=== PATIENT | male | born 1950 | race Caucasian/White ===

== ENCOUNTER 2023-02-06 02:08 | Inpatient (IN) ==
[2023-02-06] MEDS ORDERED: 0.9 % SODIUM CHLORIDE 1,000 ML IV ONE (02:14)
[2023-02-06 02:34] LABS: POC Calcium, Ionized 0.91 (1.16-1.32); POC Creatinine 1.7 (0.6-1.2); POC Potassium 3.4 (3.3-5.1)
[2023-02-06 02:41] LABS: Basophils # (Auto) 0.01 K/mcL (0.00-0.30); Basophils % (Auto) 0.2 % (0.0-2.0); Eosinophils # (Auto) 0.06 K/mcL (0.00-0.70); Eosinophils % (Auto) 1.3 % (0.0-7.0); Hematocrit 40.9 % (40.1-51.0); Hemoglobin 13.3 g/dL (13.7-17.5); Lymphocytes # (Auto) 0.52 K/mcL (1.50-4.80); Lymphocytes % (Auto) 10.9 % (15.5-49.0); Mean Cell Volume 99.5 fL (80.0-100.0); Mean Corpuscular HGB Conc 32.5 g/dL (31.0-36.0); Mean Platelet Volume 10.4 fL (8.8-12.5); Monocytes # (Auto) 0.02 K/mcL (0.10-0.90); Monocytes % (Auto) 0.4 % (1.0-12.0); Neutrophils % (Auto) 87.2 % (38.0-78.0); Platelet Count 120 K/mcL (140-440); RBC 4.11 M/mcL (4.63-6.08); Red Cell Distribution Width 15.7 % (11.5-14.5); WBC 4.8 K/mcL (4.5-11.0)
[2023-02-06 03:01] LABS: ALT/SGPT 16 U/L (<40); AST/SGOT 23 U/L (<40); Albumin 3.6 gm/dL (3.2-5.2); Albumin/Globulin Ratio 0.7 (1.0-2.3); Alkaline Phosphatase 85 U/L (39-117); Bilirubin,Total 0.6 mg/dL (0.1-1.0); Blood Urea Nitrogen 19 mg/dL (8-23); Calcium 9.5 mg/dL (8.6-10.4); Carbon Dioxide 26 mmol/L (22-30); Chloride 101 mmol/L (96-108); Globulin 4.9 gm/dL (2.2-3.7); Glomerular Filtration Rate 42; Glucose 128 mg/dL (70-105)
[2023-02-06 03:27] LABS: Appearance,Urine CLEAR (Clear); Bilirubin,Urine Negative (Negative); Color,Urine YELLOW; Culture Indicated,Urine No; Glucose,Urine (UA) Negative (Negative); Ketones,Urine Negative (Negative); Leukocyte Esterase,Urine Negative /uL (Negative); Mucus,Urine FEW /hpf; Nitrate,Urine Negative (Negative); Protein,Urine Negative (Negative); Specific Gravity,Urine 1.014 (1.000-1.035); Urine Blood 0.03 mg/dL (Negative); Urine RBC 22 /hpf (0-3); Urine Squamous Epithelial Cell < 1 /hpf (0-4); Urine WBC 1 /hpf (0-4); Urobilinogen,Urine Negative
[2023-02-06] MEDS ORDERED: AZITHROMYCIN 500 MG in DEXTROSE 5% IN WATER 250 ML IV ONE (03:32)
[2023-02-06] MEDS ORDERED: cefTRIAXone 2 GM in DEXTROSE 5% IN WATER 50 ML IV ONE (03:32)
[2023-02-06] MEDS ORDERED: ACETAMINOPHEN 500 MG TABLET PO ONE (03:38)
[2023-02-06] MEDS ORDERED: ONDANSETRON 4 MG/2 ML VIAL IV ONE (03:57)
[2023-02-06] MEDS ORDERED: metroNIDAZOLE 500 MG/100 ML BAG IV ONE (06:18)
[2023-02-06] MEDS ORDERED: SENNOSIDES 1 TABLET PO PRN (08:46)
[2023-02-06] MEDS ORDERED: oxyCODONE IR 5 MG TABLET PO PRN (08:46)
[2023-02-06] MEDS ORDERED: HYDROmorphone 0.5 MG/0.5 ML SYRINGE IV PRN (08:46)
[2023-02-06] MEDS ORDERED: ACETAMINOPHEN 325 MG TABLET PO PRN (08:46)
[2023-02-06] MEDS ORDERED: ONDANSETRON 4 MG/2 ML VIAL IV PRN (08:46)
[2023-02-06] MEDS ORDERED: ONDANSETRON 4 MG ODT TABLET SL PRN (08:46)
[2023-02-06] MEDS ORDERED: ZOLPIDEM 5 MG TABLET PO PRN (08:46)
[2023-02-06] MEDS: ENOXAPARIN 40 MG/0.4 ML SYRINGE SQ SCH (09:22)
[2023-02-06] MEDS: LACTATED RINGERS 1,000 ML IV SCH ×2 (09:22→18:37)
[2023-02-06] MEDS: DOCUSATE SODIUM 100 MG CAPSULE PO SCH ×2 (09:22→22:07)
[2023-02-06] MEDS: metroNIDAZOLE 500 MG/100 ML BAG IV SCH ×2 (13:34→22:12)
[2023-02-06] MEDS: 0.9 % SODIUM CHLORIDE 10 ML SYRINGE IV SCH ×2 (14:03→22:12)
[2023-02-07] MEDS: LACTATED RINGERS 1,000 ML IV SCH ×4 (01:14→17:33)
[2023-02-07] MEDS: metroNIDAZOLE 500 MG/100 ML BAG IV SCH ×3 (05:25→20:45)
[2023-02-07] MEDS: 0.9 % SODIUM CHLORIDE 10 ML SYRINGE IV SCH ×3 (05:26→20:45)
[2023-02-07 06:22] LABS: Blood Urea Nitrogen 15 mg/dL (8-23); Calcium 8.9 mg/dL (8.6-10.4); Carbon Dioxide 21 mmol/L (22-30); Chloride 106 mmol/L (96-108); Glomerular Filtration Rate 66; Glucose 85 mg/dL (70-105)
[2023-02-07 07:58] LABS: Anisocytosis 1+ (None Seen); Band Neutrophils % 4 % (0-10); Eosinophils % (Manual) 2 % (0-7); Hematocrit 38.2 % (40.1-51.0); Hemoglobin 12.1 g/dL (13.7-17.5); Lymphocytes % 10 % (15-49); Macrocytosis 1+ (None Seen); Mean Cell Volume 101.9 fL (80.0-100.0); Mean Corpuscular HGB Conc 31.7 g/dL (31.0-36.0); Mean Platelet Volume 10.5 fL (8.8-12.5); Monocytes % (Manual) 11 % (1-12); Platelet Count 109 K/mcL (140-440); Platelet Estimate DECREASED (Normal); RBC 3.75 M/mcL (4.63-6.08); RBC Morphology ABNORMAL (Normal); Red Cell Distribution Width 16.2 % (11.5-14.5); Segmented Neutrophils % 73 % (38-78); WBC 3.8 K/mcL (4.5-11.0)
[2023-02-07] MEDS: cefTRIAXone 1 GM VIAL IV SCH (09:04)
[2023-02-07] MEDS: DOCUSATE SODIUM 100 MG CAPSULE PO SCH ×2 (09:05→20:45)
[2023-02-07] MEDS: ENOXAPARIN 40 MG/0.4 ML SYRINGE SQ SCH (09:05)
[2023-02-08] MEDS: metroNIDAZOLE 500 MG/100 ML BAG IV SCH (04:46)
[2023-02-08] MEDS: 0.9 % SODIUM CHLORIDE 10 ML SYRINGE IV SCH (05:02)
[2023-02-08 06:48] LABS: Basophils # (Auto) 0 K/mcL (0.00-0.30); Basophils % (Auto) 0 % (0.0-2.0); Eosinophils # (Auto) 0.07 K/mcL (0.00-0.70); Eosinophils % (Auto) 3.3 % (0.0-7.0); Hematocrit 38.4 % (40.1-51.0); Hemoglobin 12.1 g/dL (13.7-17.5); Lymphocytes # (Auto) 0.69 K/mcL (1.50-4.80); Lymphocytes % (Auto) 32.9 % (15.5-49.0); Mean Cell Volume 101.9 fL (80.0-100.0); Mean Corpuscular HGB Conc 31.5 g/dL (31.0-36.0); Mean Platelet Volume 10.5 fL (8.8-12.5); Monocytes # (Auto) 0.39 K/mcL (0.10-0.90); Monocytes % (Auto) 18.6 % (1.0-12.0); Neutrophils % (Auto) 45.2 % (38.0-78.0); Platelet Count 118 K/mcL (140-440); RBC 3.77 M/mcL (4.63-6.08); Red Cell Distribution Width 15.7 % (11.5-14.5); WBC 2.1 K/mcL (4.5-11.0)
[2023-02-08 07:17] LABS: ALT/SGPT 12 U/L (<40); AST/SGOT 25 U/L (<40); Albumin/Globulin Ratio 0.7 (1.0-2.3); Alkaline Phosphatase 54 U/L (39-117); Bilirubin,Total 0.5 mg/dL (0.1-1.0); Blood Urea Nitrogen 11 mg/dL (8-23); Calcium 8.9 mg/dL (8.6-10.4); Carbon Dioxide 23 mmol/L (22-30); Chloride 104 mmol/L (96-108); Globulin 4.5 gm/dL (2.2-3.7); Glomerular Filtration Rate 74; Glucose 86 mg/dL (70-105)
[2023-02-08] MEDS: ENOXAPARIN 40 MG/0.4 ML SYRINGE SQ SCH (08:48)
[2023-02-08] MEDS: DOCUSATE SODIUM 100 MG CAPSULE PO SCH (08:59)
[2023-02-08] MEDS ORDERED: PNEUMOCOCCAL 23-VAL P-SAC VAC 0.5 ML SYRINGE IM ONE (10:00)
[2023-02-08] MEDS: cefTRIAXone 1 GM VIAL IV SCH (10:13)
== END 2023-02-08 12:51 | disposition home or self-care (01) | DRG 872 ==
LOC: ED 02:08 → MEDSUR 08:10
PROVIDERS: ADMIT Internal Medicine; ATTEND Internal Medicine

== ENCOUNTER 2024-10-12 17:31 | Inpatient (IN) ==
[2024-10-12] MEDS: 0.9 % SODIUM CHLORIDE 500 ML IV ONE (18:20)
[2024-10-12] MEDS: ACETAMINOPHEN 1,000 MG/100 ML BAG IV ONE (18:22)
[2024-10-12 19:41] LABS: ALT/SGPT 62 U/L (<40); AST/SGOT 46 U/L (<40); Albumin 2.6 gm/dL (3.2-5.2); Albumin/Globulin Ratio 1.7 (1.0-2.3); Alkaline Phosphatase 122 U/L (39-117); Anion Gap 12.0 (8.0-16.0); Bilirubin,Total 2.6 mg/dL (0.1-1.0); Blood Urea Nitrogen 32 mg/dL (8-23); Calcium 8.7 mg/dL (8.6-10.4); Carbon Dioxide 20 mmol/L (22-30); Chloride 109 mmol/L (96-108); Globulin 1.5 gm/dL (2.2-3.7); Glucose 96 mg/dL (70-105); Potassium 4.3 mmol/L (3.3-5.1); Sodium 141 mmol/L (133-145)
[2024-10-12 20:13] LABS: Basophils # (Auto) 0.02 K/mcL (0.00-0.30); Basophils % (Auto) 0.1 % (0.0-2.0); Eosinophils # (Auto) 0.01 K/mcL (0.00-0.70); Eosinophils % (Auto) 0.1 % (0.0-7.0); Hematocrit 39.5 % (40.1-51.0); Hemoglobin 13.0 g/dL (13.7-17.5); Lymphocytes # (Auto) 0.72 K/mcL (1.50-4.80); Lymphocytes % (Auto) 4.0 % (15.5-49.0); Mean Corpuscular HGB Conc 32.9 g/dL (31.0-36.0); Monocytes # (Auto) 1.08 K/mcL (0.10-0.90); Monocytes % (Auto) 5.9 % (1.0-12.0); Neutrophils % (Auto) 89.0 % (38.0-78.0); Platelet Count 28 K/mcL (140-440); RBC 4.06 M/mcL (4.63-6.08); WBC 18.2 K/mcL (4.5-11.0)
[2024-10-12] MEDS: cefTRIAXone 2 GM in DEXTROSE 5% IN WATER 50 ML IV ONE (21:07)
[2024-10-12 22:37] LABS: Bacteria,Urine Mod /hpf (0); Bilirubin,Urine Small mg/dL (Negative); Color,Urine Yellow; Glucose,Urine (UA) Negative (Negative); Ketones,Urine Negative (Negative); Leukocyte Esterase,Urine Negative /uL (Negative); Mucus,Urine Many /hpf; PH,Urine 5.5 (5.0-9.0); Protein,Urine Negative (Negative); Specific Gravity,Urine 1.020 (1.000-1.035); Urobilinogen,Urine 2.0 mg/dL
[2024-10-12] MEDS ORDERED: ONDANSETRON 4 MG/2 ML VIAL IV PRN (23:10)
[2024-10-12] MEDS ORDERED: ACETAMINOPHEN 325 MG TABLET PO PRN (23:10)
[2024-10-13] MEDS: 0.9 % SODIUM CHLORIDE 10 ML SYRINGE IV SCH ×2 (04:01→09:15)
[2024-10-13] MEDS ORDERED: ALTEPLASE 2 MG VIAL IV PRN (05:29)
[2024-10-13] MEDS ORDERED: 0.9 % SODIUM CHLORIDE 10 ML SYRINGE IV PRN (05:29)
[2024-10-13] MEDS: DOCUSATE SODIUM 100 MG CAPSULE PO SCH (08:02)
[2024-10-13] MEDS: HEPARIN 10 UNITS/ML 5ML FLUSH IV SCH ×2 (09:14)
[2024-10-13] MEDS ORDERED: VANCOMYCIN PER PHARMACY IV SCH (09:15)
[2024-10-13] MEDS: VANCOMYCIN 1,500 MG in 0.9 % SODIUM CHLORIDE 500 ML IV SCH (09:57)
[2024-10-13] MEDS: CEFEPIME 2 GM VIAL IV SCH (09:57)
[2024-10-13] MEDS ORDERED: TPN PER PHARMACY IV SCH (10:30)
[2024-10-13] MEDS ORDERED: TPN PER PHARMACY IV ONE (10:41)
[2024-10-13 12:45] LABS: ALT/SGPT 66 U/L (<40); AST/SGOT 59 U/L (<40); Albumin 2.6 gm/dL (3.2-5.2); Albumin/Globulin Ratio 1.9 (1.0-2.3); Alkaline Phosphatase 141 U/L (39-117); Anion Gap 12.0 (8.0-16.0); Bilirubin,Direct 1.5 mg/dL (<0.3); Bilirubin,Total 2.7 mg/dL (0.1-1.0); Blood Urea Nitrogen 29 mg/dL (8-23); Calcium 8.5 mg/dL (8.6-10.4); Carbon Dioxide 19 mmol/L (22-30); Chloride 109 mmol/L (96-108); Globulin 1.4 gm/dL (2.2-3.7); Glucose 72 mg/dL (70-105); Phosphorous 3.5 mg/dL (2.5-4.5); Potassium 4.1 mmol/L (3.3-5.1); Sodium 140 mmol/L (133-145); Triglycerides 109 mg/dL (<150); Uric Acid 4.9 mg/dL (2.5-8.0)
[2024-10-13 13:21] LABS: Fibrinogen 101 mg/dL (200-400); INR 1.6 (0.9-1.1); Partial Thromboplastin Time 52.7 sec (20.0-37.0); Prothrombin Time 20.3 sec (11.9-14.5)
[2024-10-13 13:45] LABS: Basophils # (Auto) 0.06 K/mcL (0.00-0.30); Basophils % (Auto) 0.2 % (0.0-2.0); Eosinophils # (Auto) 0.01 K/mcL (0.00-0.70); Eosinophils % (Auto) 0 % (0.0-7.0); Hematocrit 38.2 % (40.1-51.0); Hemoglobin 12.6 g/dL (13.7-17.5); Lymphocytes # (Auto) 0.34 K/mcL (1.50-4.80); Lymphocytes % (Auto) 1.0 % (15.5-49.0); Mean Corpuscular HGB Conc 33.0 g/dL (31.0-36.0); Monocytes # (Auto) 1.86 K/mcL (0.10-0.90); Monocytes % (Auto) 5.7 % (1.0-12.0); Neutrophils % (Auto) 91.7 % (38.0-78.0); Platelet Count 29 K/mcL (140-440); RBC 3.92 M/mcL (4.63-6.08); WBC 32.4 K/mcL (4.5-11.0)
[2024-10-13] MEDS: CALCIUM GLUCONATE IV SCH (15:30)
[2024-10-13] MEDS: POTASSIUM CHLORIDE IV SCH (15:30)
[2024-10-13] MEDS: [UNRECOGNIZED DRUG - OTHER] IV SCH (15:30)
[2024-10-13] MEDS: SODIUM CHLORIDE IV SCH (15:30)
[2024-10-13] MEDS: SENNOSIDES 1 TABLET PO SCH (21:11)
[2024-10-14 09:39] LABS: ALT/SGPT 57 U/L (<40); AST/SGOT 47 U/L (<40); Albumin 2.5 gm/dL (3.2-5.2); Albumin/Globulin Ratio 1.8 (1.0-2.3); Alkaline Phosphatase 127 U/L (39-117); Anion Gap 10.0 (8.0-16.0); Bilirubin,Direct 1.3 mg/dL (<0.3); Bilirubin,Total 2.4 mg/dL (0.1-1.0); Blood Urea Nitrogen 27 mg/dL (8-23); C-Reactive Protein 9.29 mg/dL (0.03-0.80); Calcium 8.6 mg/dL (8.6-10.4); Carbon Dioxide 19 mmol/L (22-30); Chloride 110 mmol/L (96-108); Globulin 1.4 gm/dL (2.2-3.7); Glucose 156 mg/dL (70-105); Phosphorous 2.8 mg/dL (2.5-4.5); Potassium 4.0 mmol/L (3.3-5.1); Sodium 139 mmol/L (133-145); Triglycerides 102 mg/dL (<150); Uric Acid 4.3 mg/dL (2.5-8.0)
[2024-10-14] MEDS: DEXTROSE 5%-1/2NS W/20MEQ KCL 1,000 ML IV SCH (09:53)
[2024-10-14 09:56] LABS: Basophils # (Auto) 0.03 K/mcL (0.00-0.30); Basophils % (Auto) 0.1 % (0.0-2.0); Eosinophils # (Auto) 0.01 K/mcL (0.00-0.70); Eosinophils % (Auto) 0 % (0.0-7.0); Hematocrit 36.5 % (40.1-51.0); Hemoglobin 12.4 g/dL (13.7-17.5); Lymphocytes # (Auto) 0.54 K/mcL (1.50-4.80); Lymphocytes % (Auto) 2.2 % (15.5-49.0); Mean Corpuscular HGB Conc 34.0 g/dL (31.0-36.0); Monocytes # (Auto) 1.46 K/mcL (0.10-0.90); Monocytes % (Auto) 6.1 % (1.0-12.0); Neutrophils % (Auto) 90.8 % (38.0-78.0); Platelet Count 26 K/mcL (140-440); RBC 3.76 M/mcL (4.63-6.08); WBC 24.1 K/mcL (4.5-11.0)
[2024-10-14] MEDS: CALCIUM CARBONATE 500 MG TAB.CHEW CHEWED PRN (10:09)
[2024-10-14] MEDS: CALCIUM CARBONATE 500 MG TAB.CHEW ONE (10:27)
[2024-10-14] MEDS ORDERED: FAT EMULSION 20% 250 ML IV SCH (18:00)
[2024-10-15 07:00] LABS: ALT/SGPT 53 U/L (<40); AST/SGOT 44 U/L (<40); Albumin 2.5 gm/dL (3.2-5.2); Albumin/Globulin Ratio 1.7 (1.0-2.3); Alkaline Phosphatase 118 U/L (39-117); Anion Gap 7.0 (8.0-16.0); Bilirubin,Direct 1.1 mg/dL (<0.3); Bilirubin,Total 1.9 mg/dL (0.1-1.0); Blood Urea Nitrogen 20 mg/dL (8-23); Calcium 8.1 mg/dL (8.6-10.4); Carbon Dioxide 20 mmol/L (22-30); Chloride 112 mmol/L (96-108); Globulin 1.5 gm/dL (2.2-3.7); Glucose 104 mg/dL (70-105); Phosphorous 2.4 mg/dL (2.5-4.5); Potassium 3.8 mmol/L (3.3-5.1); Sodium 139 mmol/L (133-145); Triglycerides 102 mg/dL (<150); Uric Acid 4.2 mg/dL (2.5-8.0)
[2024-10-15 07:46] LABS: Basophils # (Auto) 0.02 K/mcL (0.00-0.30); Basophils % (Auto) 0.1 % (0.0-2.0); Eosinophils # (Auto) 0.04 K/mcL (0.00-0.70); Eosinophils % (Auto) 0.2 % (0.0-7.0); Hematocrit 37.9 % (40.1-51.0); Hemoglobin 12.6 g/dL (13.7-17.5); Lymphocytes # (Auto) 0.52 K/mcL (1.50-4.80); Lymphocytes % (Auto) 2.4 % (15.5-49.0); Mean Corpuscular HGB Conc 33.2 g/dL (31.0-36.0); Monocytes # (Auto) 1.03 K/mcL (0.10-0.90); Monocytes % (Auto) 4.7 % (1.0-12.0); Neutrophils % (Auto) 92.1 % (38.0-78.0); Platelet Count 32 K/mcL (140-440); RBC 3.84 M/mcL (4.63-6.08); WBC 21.9 K/mcL (4.5-11.0)
[2024-10-15 12:29] VITALS: O2SAT 97
[2024-10-15] MEDS: PNEUMOCOCCAL 23-VAL P-SAC VAC 0.5 ML SYRINGE IM ONE (12:35)
[2024-10-15 15:06] VITALS: TEMP 97.5
== END 2024-10-15 15:27 | disposition short-term general hospital (02) | DRG 314 ==
LOC: ED 17:31 → MEDSUR 10-13 01:47
PROVIDERS: ADMIT Internal Medicine; ATTEND Internal Medicine